=== PATIENT | male | born 1985 | race Caucasian/White ===

== ENCOUNTER 2019-04-23 13:54 | Emergency (ER) | payer BC ==
[~2019-04-23] VITALS: Ht 180.3 cm; Wt 103.4 kg
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
[2019-04-23 14:54] VITALS: BP_DIAS 80
[2019-04-23] MEDS ORDERED: PLEASE ENTER ALLERGIES MC SCH (15:30)
[2019-04-23] MEDS ORDERED: OXYcodone/APAP 7.5/325MG TABLET PO ONE (15:30)
--- NOTE | 2019-04-23 15:45 | NUR ---
DISCHARGE INSTUCTIONS REVIEWED.
[2019-04-23 15:46] VITALS: BP_SYST 128
--- NOTE | 2019-04-23 16:00 | NUR ---
DC EDUCATION PROVIDED BY RN. PT AMBULATED STEADILY TO DC. FAMILY TO TRANSPORT PT HOME
== END 2019-04-23 16:02 | disposition home or self-care (01) ==
LOC: ED 16:01
DX: G89.11 Acute pain due to trauma (principal); M54.2 Cervicalgia; V49.49XA Driver injured in collision with other motor vehicles in traffic accident, initial encounter; Y93.89 Activity, other specified; Y92.488 Other paved roadways as the place of occurrence of the external cause; Y99.8 Other external cause status
CPT/HCPCS: 72125; 99284